=== PATIENT | female | born 1950 | race Caucasian/White ===

== ENCOUNTER 2016-09-11 09:16 | Emergency (ER) | payer OTHER ==
[~2016-09-11] VITALS: Ht 167.6 cm; Wt 66.7 kg
[~2016-09-11 09:16] MED LIST: AMPYRA10 MG PO; ASPIR 8181 M1 PO; COLACE100 MG PO; DAILY VALUE1 EACH PO; DULCOLAX10 MG PR; Effexor XR PO; FLAGYL500 MG PO; FLEET ENEMA-AD118 ML PR; FLORASTOR250 MG PO; KEFLEX500 MG PO; LO-DOSE ASPIRIN81 M1 PO; Levaquin PO; PHILLIPS'400 MG/5 M PO; REMERON15 M2 PO; SENNA8.6 MG PO; TOVIAZ8 MG PO; TYLENOL REGULA325 MG PO; VENLAFAXINE HC150 M1 PO; VENLAFAXINE HCL75 M3 PO; VITAMIN B122500 MCG PO; VITAMIN D1000 INTUN PO; VITAMIN D31000 UNI2 PO; VITAMIN D31000 UNIT PO; Vancocin Oral Solution PO; Zeasorb Antifungal Treatment,Mitrazol Powder TP
[2016-09-11 09:47] LABS: HEMATOCRIT 37.2 % (36.0-46.0); MCH 28.9 PG (29.0-34.0); MCHC 32.5 G/DL (30.0-36.0); MEAN PLAT.VOLUME 11.2 uM^3 (9.5-12.4); PLATELET COUNT 234 K/uL (156-360); RBC DIS.WIDTH-CV 12.5 % (11.8-14.6); RBC DIS.WIDTH-SD 39.4 % (39-53); RED BLOOD COUNT 4.18 M/uL (3.80-5.20); WHITE BLOOD COUNT 7.9 K/uL (4.1-10.2)
[2016-09-11 09:58] LABS: CHLORIDE 110 mEq/L (99-109)
[2016-09-11 09:59] LABS: SODIUM 142 mEq/L (136-147)
[2016-09-11 10:00] LABS: GLUCOSE 89 mg/dL (70-99)
[2016-09-11 10:02] LABS: ANION GAP 12 MEQ/L (2-14)
[2016-09-11 10:04] LABS: GFR ESTIMATE (CALCULATED) > 59 mL/min/
[2016-09-11 10:05] LABS: UREA NITROGEN (BUN) 21 mg/dL (9-23)
[2016-09-11 10:08] LABS: ADD MIUA? YES; BILIRUBIN NEGATIVE; BLOOD SMALL; COLOR YELLOW ((YELLOW)); GLUCOSE (STRIP) NEGATIVE; KETONES NEGATIVE; LEUKOCYTES LARGE; NITRITE NEGATIVE; PROTEIN (STRIP) 30; SPECIFIC GRAVITY 1.025 (1.000-1.030); UROBILINOGEN 0.2 MG/DL (0.2-1.0)
[2016-09-11 10:10] LABS: TROP-I INTERPRETATION NEGATIVE; TROPONIN-I < 0.01 ng/mL (0.0-0.30)
[2016-09-11 10:34] LABS: WHITE BLOOD CELLS TNTC /HPF (0-5)
[2016-09-11 10:35] LABS: BACTERIA 3+; CASTS NONE SEEN /LPF; CRYSTALS NONE SEEN; EPITHELIAL CELLS RARE; MUCUS NONE SEEN; UCUL ADDED? YES
[2016-09-11] MEDS ORDERED: KEPPRA500 MG PO (12:00)
[2016-09-11] MEDS ORDERED: KEFLEX500 MG PO (12:01)
[2016-09-11 14:27] VITALS: BP 105/56
== END 2016-09-11 14:29 ==
LOC: EME → EDBD 09:16 → EME 09:16
PROVIDERS: Emergency Medicine
DX: R56.9 Unspecified convulsions (principal); N39.0 Urinary tract infection, site not specified; Z79.82 Long term (current) use of aspirin
CPT/HCPCS: 70450; 71010; 80048; 81003; 84484; 85027; 87077; 87086; 87186; 93005; 99281; 99285; J0696; J1953; J7030; J7050

== ENCOUNTER 2017-03-01 07:50 | Emergency (ER) | payer OTHER ==
[~2017-03-01] VITALS: Ht 160 cm; Wt 69.9 kg
[~2017-03-01 07:50] MED LIST changes: +KEPPRA500 MG PO
[2017-03-01 08:43] LABS: HEMATOCRIT 36.7 % (36.0-46.0); MCH 29.8 PG (29.0-34.0); MCHC 33.2 G/DL (30.0-36.0); MCV 89.7 FL (83-99); MEAN PLAT.VOLUME 11.8 uM^3 (9.5-12.4); PLATELET COUNT 214 K/uL (156-360); RBC DIS.WIDTH-CV 11.9 % (11.8-14.6); RBC DIS.WIDTH-SD 39.8 % (39-53); RED BLOOD COUNT 4.09 M/uL (3.80-5.20); WHITE BLOOD COUNT 6.3 K/uL (4.1-10.2)
[2017-03-01 08:57] LABS: CHLORIDE 107 mEq/L (99-109); SODIUM 142 mEq/L (136-147)
[2017-03-01 08:58] LABS: GLUCOSE 88 mg/dL (70-99)
[2017-03-01 09:00] LABS: ANION GAP 11 MEQ/L (2-14)
[2017-03-01 09:02] LABS: GFR ESTIMATE (CALCULATED) > 59 mL/min/
[2017-03-01 09:03] LABS: UREA NITROGEN (BUN) 17 mg/dL (9-23)
[2017-03-01 10:49] VITALS: BP 106/78
== END 2017-03-01 13:31 ==
LOC: EME 07:50
PROVIDERS: Emergency Medicine
DX: G40.909 Epilepsy, unspecified, not intractable, without status epilepticus (principal); G35 Multiple sclerosis; E11.9 Type 2 diabetes mellitus without complications
CPT/HCPCS: 80048; 85027; 93005; 99281; 99284

== ENCOUNTER 2017-07-24 19:30 | Emergency (ER) | payer OTHER ==
[~2017-07-24] VITALS: Ht 160 cm; Wt 62.7 kg
[~2017-07-24 19:30] MED LIST changes: +CYANOCOBALAM1000 MCG PO; -REMERON15 M2 PO; +REMERON30 M2 PO; +VENLAFAXINE H37.5 M3 PO; -VENLAFAXINE HC150 M1 PO; -VITAMIN B122500 MCG PO
[2017-07-24 20:32] LABS: BASOPHIL (%) 0.1 % (0-1); EOSINOPHIL (%) 0 % (0-5); HEMATOCRIT 37.2 % (36.0-46.0); HEMOGLOBIN 12.3 G/DL (11.9-15.5); IMMATURE GRANULOCYTE (%) 0.5 % (0.0-0.7); LYMPHOCYTE (%) 8.8 % (15-42); MCH 31.4 PG (29.0-34.0); MCHC 33.1 G/DL (30.0-36.0); MCV 94.9 FL (83-99); MONOCYTE (%) 4.5 % (3-12); MONOCYTE COUNT 0.5 K/uL (0-0.8); NEUTROPHIL (%) 86.1 % (45-76); NEUTROPHIL COUNT 9.4 K/uL (1.8-6.4); PLATELET COUNT 152 K/uL (156-360); RBC DIS.WIDTH-CV 13.9 % (11.8-14.6); RBC DIS.WIDTH-SD 48.3 % (39-53); RED BLOOD COUNT 3.92 M/uL (3.80-5.20); WHITE BLOOD COUNT 10.9 K/uL (4.1-10.2)
[2017-07-24 20:41] LABS: ALBUMIN 3.3 g/dL (3.2-4.8)
[2017-07-24 20:42] LABS: CHLORIDE 109 mEq/L (99-109); POTASSIUM 3.9 mEq/L (3.7-5.4); SODIUM 144 mEq/L (136-147)
[2017-07-24 20:44] LABS: GLUCOSE 142 mg/dL (70-99)
[2017-07-24 20:46] LABS: TOTAL BILIRUBIN 0.4 mg/dL (0.0-1.0)
[2017-07-24 20:47] LABS: ALKALINE PHOSPHATASE 70 IU/L (3-129)
[2017-07-24 20:48] LABS: CREATININE 0.8 mg/dL (0.6-1.3); GFR ESTIMATE (CALCULATED) > 59 mL/min/
[2017-07-24 20:49] LABS: AST (GOT) 29 IU/L (2-34); UREA NITROGEN (BUN) 26 mg/dL (9-23)
[2017-07-24 20:51] LABS: ALT (GPT) 26 IU/L (3-49); LIPASE 4 U/L (1.0-51.0)
[2017-07-24 20:54] LABS: TROP-I INTERPRETATION NEGATIVE; TROPONIN-I < 0.01 ng/mL (0.0-0.30)
[2017-07-24 21:19] LABS: APPEARANCE TURBID ((CLEAR)); BILIRUBIN NEGATIVE; BLOOD MODERATE; COLOR AMBER ((YELLOW)); GLUCOSE (STRIP) NEGATIVE; KETONES 5; LEUKOCYTES MODERATE; NITRITE NEGATIVE; PROTEIN (STRIP) 100; SPECIFIC GRAVITY 1.026 (1.000-1.030)
[2017-07-24 21:24] LABS: EPITHELIAL CELLS 1+ /HPF; MUCUS NONE SEEN /LPF; RED BLOOD CELLS 30-40 /HPF (0-5); UCUL ADDED? YES; WHITE BLOOD CELLS TNTC /HPF (0-5)
[2017-07-24 21:25] LABS: BACTERIA 2+ /HPF
[2017-07-24] MEDS ORDERED: VITAMIN B-6100 MG PO (22:15)
[2017-07-24] MEDS ORDERED: DULCOLAX10 MG PR (22:16)
[2017-07-24] MEDS ORDERED: KEPPRA100 MG/1 M PO (22:16)
[2017-07-24] MEDS ORDERED: DEPAKOTE SPRIN125 MG PO (22:16)
[2017-07-24] MEDS ORDERED: TRAMADOL HCL50 MG PO (22:17)
[2017-07-24] MEDS ORDERED: ZOFRAN4 MG PO (22:19)
[2017-07-24 22:36] LABS: HEMATOCRIT 33.6 % (36.0-46.0); HEMOGLOBIN 11.1 G/DL (11.9-15.5); MCV 94.9 FL (83-99)
[2017-07-24] MEDS ORDERED: LEVAQUIN750 MG PO (22:41)
[2017-07-24] MEDS ORDERED: PRILOSEC10 MG PO (22:43)
[2017-07-24 23:29] LABS: HEMATOCRIT 38.1 % (36.0-46.0); HEMOGLOBIN 12.4 G/DL (11.9-15.5); MCV 96.5 FL (83-99)
[2017-07-25 00:01] VITALS: BP 101/63
== END 2017-07-25 00:03 ==
LOC: EME 19:30
PROVIDERS: Emergency Medicine Emergency Medical Services
DX: N39.0 Urinary tract infection, site not specified (principal); N20.0 Calculus of kidney; K29.70 Gastritis, unspecified, without bleeding; K80.20 Calculus of gallbladder without cholecystitis without obstruction; G80.9 Cerebral palsy, unspecified; G35 Multiple sclerosis; E11.9 Type 2 diabetes mellitus without complications; F32.9 Major depressive disorder, single episode, unspecified; Z79.82 Long term (current) use of aspirin
CPT/HCPCS: 71010; 74177; 80053; 81003; 83605; 83690; 84484; 85014; 85018; 85025; 86850; 86900; 86901; 87040; 87086; 99281; 99285; C9113; J2543; J3370